=== PATIENT | female | born 1955 | race Caucasian/White ===

== ENCOUNTER 2024-05-14 20:28 | Emergency (ER) | payer MEDICARE, SELFPAY ==
[2024-05-14 20:32] VITALS: BP 150/77; PULSE 85; RESP 20; TEMP 37; O2SAT 97
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
== END 2024-05-14 20:59 | disposition home or self-care (01) ==
LOC: ER 21:02
PROVIDERS: Emergency Provider Emergency Medicine
DX: Z04.1 Encounter for examination and observation following transport accident (principal); V48.6XXA Car passenger injured in noncollision transport accident in traffic accident, initial encounter
CPT/HCPCS: 99283